=== PATIENT | male | born 1965 ===

== ENCOUNTER 2024-03-02 07:07 | Day surgery (SDC) | payer BC ==
[2024-02-28 10:10] LABS: Absolute Eosinophils 0.1 K/uL (0-0.5); Absolute Lymphocytes (CBC) 1.4 K/uL (0.7-4.9); Absolute Monocytes 0.8 K/uL (0.1-1.3); Basophils % 0.3 % (0-1.3); Eosinophils % 1.1 % (0-4.4); Hematocrit 46.6 % (39.6-49.0); Hemoglobin 15.7 g/dL (13.6-17.9); Lymphocytes % 15.2 % (15.3-44.8); MCHC 33.7 g/dL (32.0-36.0); MCV 92.1 fL (80-100); MPV 8.1 fL (7.6-11.3); Monocytes % 8.3 % (3.3-12.3); Neutrophils % 75.1 % (41.7-73.7); Platelets 237 thou/uL (152-406); RBC Red Blood Cell Count 5.06 M/uL (4.33-5.43); Red Cell Distribution Width 13.5 % (12.1-15.2)
[2024-02-28 10:24] LABS: Anion Gap 7.1 mEq/L (5.0-15.0); Potassium 4.1 mEq/L (3.5-5.1)
[2024-03-02] MEDS: Ringers Lactate 1,000 ML IV ONE (07:30)
[2024-03-02] MEDS ORDERED: EPINEPHRINE 1 MG/ML VIAL ONE (07:50)
[2024-03-02] MEDS ORDERED: LIDOCAINE 1% MPF 5 ML VIAL ONE (07:53)
[2024-03-02] MEDS ORDERED: propofoL 200 MG/20 ML VIAL IV ONE (07:54)
[2024-03-02 09:15] VITALS: O2SAT 97
[2024-03-02 09:29] VITALS: BP 104/76; TEMP 97.3
--- NOTE | 2024-03-02 12:21 | EKG ---
Test Date: 2024-02-28 Test Time: 09:55:33 Plate Conditioner: GUI MEASUREMENT RESULTS: Intervals: Rate: 57 SD: 152 QRSD: 84 QT: 380 QTc: 369 [place]: P: 71 SD: 152 QRS: 76 T: 72 INTERPRETIVE STATEMENTS: Sinus bradycardia Otherwise normal ECG No previous ECG available for comparison Electronically Signed On 03-02-24 12:16:43 [employer] by Jean Herzog
== END 2024-03-02 09:38 | disposition home or self-care (01) ==
LOC: OR 07:07
PROVIDERS: ATTEND Surgery
PROC: 0DJD8ZZ Inspection of Lower Intestinal Tract, Via Natural or Artificial Opening Endoscopic (ICD-10-PCS; principal; 2024-03-02 08:30)
DX: Z12.11 Encounter for screening for malignant neoplasm of colon (principal); K64.4 Residual hemorrhoidal skin tags; K64.8 Other hemorrhoids
CPT/HCPCS: 93005; 85025; 80048; 36415; 45378; J2704; J2003; J7120; J0171